=== PATIENT | female | born 1945 | race Caucasian/White ===

== ENCOUNTER 2021-08-10 13:05 | Emergency (ER) | payer OTHER, BC ==
[2021-08-10 13:47] VITALS: BMI 28.3
[2021-08-10] MEDS ORDERED: BEBTELOVIMAB (EUA) 175 MG/2 ML VIAL IVPUSH ONE (14:11)
[2021-08-10 16:21] VITALS: BP 112/49; PULSE 76; TEMP 99.8
== END 2021-08-10 16:21 | disposition home or self-care (01) ==
LOC: EDSEX 13:05 → JCOVINFU 13:05
DX: U07.1 COVID-19 (principal)
CPT/HCPCS: 99284-25; M0222; Q0222